=== PATIENT | female | born 1975 | race Caucasian/White ===

== ENCOUNTER 2020-02-02 00:49 | Emergency (ER) | payer OTHER ==
[~2020-02-02] VITALS: Ht 177.8 cm; Wt 103.0 kg
[~2020-02-02 00:49] MED LIST: ACYCLOVIR400 MG PO; AMOXICILLIN500 MG PO; ASPIR-LOW81 MG PO; ASPIRIN EC81 MG PO; CALCIUM CARBON500 MG PO; CARTRIDGE STAM1 EACH SUB-Q; CYCLOBENZAPRINE10 MG PO; CYCLOBENZAPRINE5 MG PO; D-20002000 UNIT PO; FERROUS GLUCON324 M1 PO; FERROUS SULFAT325 MG PO; FLUOXETINE HCL20 MG PO; GABAPENTIN300 MG PO; GLUCAGON EMERGEN1 MG INJ; HYDROCHLOROTH12.5 M1 PO; LANTUS100 UNIT/1 SUB-Q; LEVOTHYROXINE50 MCG PO; LEVOTHYROXINE75 MCG PO; METFORMIN HCL500 MG PO; MEVACOR20 MG PO; MOBIC15 MG PO; MOBIC7.5 MG PO; MULTI-DAY VITA1 EACH PO; NORCO 5-325 TA1 EACH PO; NOVOLOG100 UNIT/1 SUB-Q; NOVOLOG100 UNIT/2; NOVOLOG100 UNITS/ SUB-Q; OMEPRAZOLE20 MG PO; TRESIBA FL100 UNIT/1 SUB-Q; ULTRAM50 MG PO; VITAMIN B-12100 MCG PO; VITAMIN B-12500 MCG PO; VITAMIN C250 M1 PO; VITAMIN C500 M1 PO; VITAMIN D1000 UNI1 PO; VITAMIN D5000 UNI1 PO; VITAMIN D5000 UNIT PO; ZOVIRAX400 MG PO
--- OUTSIDE RECORDS SUMMARY | 2020-02-02 00:54 | XMS ---
PreManage Notification: ROS ANDRE Security Respiratory Equipment Assistant Events No recent Security Events currently on file CRITERIA MET - PDMP CARE PROVIDERS PURA DOUGHERTY Physician [facility] Worker: Medical Current PHONE: [phone] Rocio has no Care Guidelines for this patient. ENisha VISIT COUNT (12 MO.) 1 [facility] TOTAL 1 NOTE: Visits indicate total known visits. ED/UCC VISIT TRACKING (12 MO.) 02/02/2020 00:51 [facility] [place] TYPE: Emergency COMPLAINT: - FELL WHILE AT WORK INPATIENT VISIT TRACKING (12 MO.) No inpatient visits to display in this time frame [id number]
[2020-02-02] MEDS ORDERED: ESCITALOPRAM OX20 MG PO (01:24)
[2020-02-02] MEDS ORDERED: APIDRA100 UNIT/2 SUB-Q (01:25)
== END 2020-02-02 01:38 | disposition home or self-care (01) ==
LOC: ED 00:49
DX: S63.502A Unspecified sprain of left wrist, initial encounter (principal); S00.83XA Contusion of other part of head, initial encounter; S80.211A Abrasion, right knee, initial encounter; W10.8XXA Fall (on) (from) other stairs and steps, initial encounter; E11.9 Type 2 diabetes mellitus without complications; E03.9 Hypothyroidism, unspecified; Z91.02 Food additives allergy status; Z88.8 Allergy status to other drugs, medicaments and biological substances; Z91.048 Other nonmedicinal substance allergy status; Z79.899 Other long term (current) drug therapy; Z79.4 Long term (current) use of insulin
CPT/HCPCS: 73110; 99283-25

== ENCOUNTER 2020-09-10 06:56 | Emergency (ER) | payer OTHER ==
[~2020-09-10] VITALS: Ht 177.8 cm; Wt 105.3 kg
[~2020-09-10 06:56] MED LIST changes: +APIDRA100 UNIT/2 SUB-Q; +ESCITALOPRAM OX20 MG PO
--- OUTSIDE RECORDS SUMMARY | 2020-09-10 07:02 | XMS ---
PreManage Notification: ROS ANDRE Security Digital Designer Events No recent Security Events currently on file CRITERIA MET - PDMP CARE PROVIDERS PURA DOUGHERTY Physician Engineer Internship: Medical Current PHONE: Unknown Rocio has no Care Guidelines for this patient. ENisha VISIT COUNT (12 MO.) 2 [facility] TOTAL 2 NOTE: Visits indicate total known visits. ED/UCC VISIT TRACKING (12 MO.) 09/10/2020 06:59 [facility] [place] TYPE: Emergency COMPLAINT: - R ANKLE INJURY 02/02/2020 00:51 [facility] [place] TYPE: Emergency COMPLAINT: - FELL WHILE AT WORK DIAGNOSES: - Pain in left wrist - Other exterminator helper termite (current) drug therapy - Hypothyroidism, unspecified - Food additives allergy status - Contusion of other part of head, initial encounter - Unspecified sprain of left wrist, initial encounter - intermediate (current) use of insulin - Abrasion, right knee, initial encounter - Type 2 diabetes mellitus without complications - Allergy status to other drugs, medicaments and biological substances - Fall (on) (from) other stairs and steps, initial encounter - Other nonmedicinal substance allergy status - Allergy status to other drugs, medicaments and biological substances INPATIENT VISIT TRACKING (12 MO.) No inpatient visits to display in this time frame [id number]
[2020-09-10] MEDS ORDERED: METFORMIN HCL500 M1 PO (07:12)
[2020-09-10] MEDS ORDERED: LEVOTHYROXINE88 MCG PO (07:13)
[2020-09-10] MEDS ORDERED: GABAPENTIN100 MG PO (07:13)
== END 2020-09-10 08:24 | disposition home or self-care (01) ==
LOC: ED 06:56
DX: S93.401A Sprain of unspecified ligament of right ankle, initial encounter (principal); S93.601A Unspecified sprain of right foot, initial encounter; X50.9XXA Other and unspecified overexertion or strenuous movements or postures, initial encounter; E11.9 Type 2 diabetes mellitus without complications; E03.9 Hypothyroidism, unspecified; Z88.8 Allergy status to other drugs, medicaments and biological substances; Z91.048 Other nonmedicinal substance allergy status; Z91.018 Allergy to other foods; Z79.899 Other long term (current) drug therapy; Z79.4 Long term (current) use of insulin
CPT/HCPCS: 73610; 73630; 99283-25

== ENCOUNTER 2020-09-22 05:33 | Emergency (ER) | payer OTHER ==
[~2020-09-22] VITALS: Ht 177.8 cm; Wt 105.0 kg
[~2020-09-22 05:33] MED LIST changes: +GABAPENTIN100 MG PO; +LEVOTHYROXINE88 MCG PO; +METFORMIN HCL500 M1 PO
--- OUTSIDE RECORDS SUMMARY | 2020-09-22 05:36 | XMS ---
PreManage Notification: ROS ANDRE Security Technical Cable Jointer Events No recent Security Events currently on file CRITERIA MET - [facility] - 2 Visits in 30 Days [facility] PURA DOUGHERTY Physician Street Cleaner: Medical Current PHONE: Unknown Rocio has no Care Guidelines for this patient. ENisha VISIT COUNT (12 MO.) 4 [facility] TOTAL 4 NOTE: Visits indicate total known visits. ED/UCC VISIT TRACKING (12 MO.) 09/22/2020 05:34 [facility] [place] TYPE: Emergency COMPLAINT: - RT UPPER SIDE PAIN 09/21/2020 07:13 [facility] [place] TYPE: Emergency COMPLAINT: - R SIDE CHEST/RIB PAIN 09/10/2020 06:59 [facility] [place] TYPE: Emergency COMPLAINT: - R ANKLE INJURY DIAGNOSES: - Unspecified sprain of right foot, initial encounter - Pain in right foot - Other nonmedicinal substance allergy status - Hypothyroidism, unspecified - prison (current) use of insulin - Allergy to other foods - Type 2 diabetes mellitus without complications - Sprain of unspecified ligament of right ankle, initial encounter - Other parts counterman (current) drug therapy - Allergy status to other drugs, medicaments and biological substances - Other and unspecified overexertion or strenuous movements or postures, initial encounter 02/02/2020 00:[address] [facility] [place] TYPE: Emergency COMPLAINT: - FELL WHILE AT WORK DIAGNOSES: - Pain in left wrist - Other residential (current) drug therapy - Hypothyroidism, unspecified - Food additives allergy status - Contusion of other part of head, initial encounter - Unspecified sprain of left wrist, initial encounter - prison (current) use of insulin - Abrasion, right [...] visits to display in this time frame [id number]
[2020-09-22] MEDS ORDERED: HYDROCODON-ACE1 EA10 PO (07:08)
[2020-09-22] MEDS ORDERED: LIDODERM1 EACH TOP (07:08)
== END 2020-09-22 07:18 | disposition home or self-care (01) ==
LOC: ED 05:33
DX: R07.81 Pleurodynia (principal); E11.9 Type 2 diabetes mellitus without complications; E03.9 Hypothyroidism, unspecified; Z88.8 Allergy status to other drugs, medicaments and biological substances; Z91.018 Allergy to other foods; Z91.048 Other nonmedicinal substance allergy status; Z79.899 Other long term (current) drug therapy; Z79.4 Long term (current) use of insulin
CPT/HCPCS: 71101; 99284-25; A9270

== ENCOUNTER 2021-06-05 16:08 | Emergency (ER) | payer OTHER ==
[~2021-06-05] VITALS: Ht 177.8 cm; Wt 104.8 kg
[~2021-06-05 16:08] MED LIST changes: +HYDROCODON-ACE1 EA10 PO; +LIDODERM1 EACH TOP
--- OUTSIDE RECORDS SUMMARY | 2021-06-05 16:12 | XMS ---
PreManage Notification: ROS ANDRE Security Casserole Preparer Events 1 event(s) in the past 18 months Most recent security events: Elopement at [facility] 09/21/2020 07:13 - Other Details: PATIENT LWBS CRITERIA MET - PDMP CARE PROVIDERS MORRIS ALVARADO Email Administrator Current PHONE: [phone] PURA DOUGHERTY Physician Email Administrator: Medical Current PHONE: Unknown Rocio has no Care Guidelines for this patient. E.D. VISIT COUNT (12 MO.) [address] [place] [address] TOTAL 4 NOTE: Visits indicate total known visits. ED/UCC VISIT TRACKING (12 MO.) 06/05/2021 16:09 [facility] [place] TYPE: Emergency COMPLAINT: - LT FOOT PAIN 09/22/2020 05:34 [facility] [place] TYPE: Emergency COMPLAINT: - RT UPPER SIDE PAIN DIAGNOSES: - Other termite control representative (current) drug therapy - Allergy status to other drugs, medicaments and biological substances - Hypothyroidism, unspecified - intermediate (current) use of insulin - Other nonmedicinal substance allergy status - Pleurodynia - Type 2 diabetes mellitus without complications - Allergy to other foods - Other chest pain 09/21/2020 07:13 [facility] [place] TYPE: Emergency COMPLAINT: - R SIDE CHEST/RIB PAIN 09/10/2020 06:59 [facility] [place] TYPE: Emergency COMPLAINT: - R ANKLE INJURY DIAGNOSES: - Unspecified sprain of right foot, initial encounter - Pain in right foot - Other nonmedicinal substance allergy status - Hypothyroidism, unspecified - intermediate (current) use of insulin - Allergy to other foods - Type 2 diabetes mellitus without complications - Sprain of unspecified ligament of right ankle, initial encounter - Other care home (current) drug therapy - Allergy status to other drugs, medicaments and biological substances - Other and unspecified overexertion or strenuous movements or postures, initial encounter INPATIENT VISIT TRACKING (12 MO.) No inpatient visits to display in this time frame [id number]
[2021-06-05] MEDS ORDERED: HUMALOG100 UNIT/1 SUB-Q (16:25)
[2021-06-05] MEDS ORDERED: ULTRAM50 MG PO (16:26)
[2021-06-05] MEDS ORDERED: CEPHALEXIN500 M1 PO (17:29)
== END 2021-06-05 17:51 | disposition home or self-care (01) ==
LOC: ED 16:08
DX: L03.116 Cellulitis of left lower limb (principal); E11.9 Type 2 diabetes mellitus without complications; E03.9 Hypothyroidism, unspecified; Z91.018 Allergy to other foods; Z91.048 Other nonmedicinal substance allergy status; Z88.8 Allergy status to other drugs, medicaments and biological substances; Z79.84 Long term (current) use of oral hypoglycemic drugs; Z79.899 Other long term (current) drug therapy; Z79.4 Long term (current) use of insulin
CPT/HCPCS: 36415; 73610; 84550; 85025; 85651; 86140; 99283-25